=== PATIENT | female | born 1940 | race Asian ===

== ENCOUNTER 2019-02-03 15:57 | Emergency (ER) | payer MEDICARE, OTHER ==
[~2019-02-03] VITALS: Ht 162.6 cm; Wt 52.2 kg
--- NOTE | 2019-02-03 16:02 | NUR ---
ED Nurse Note: Patient brought in by ambulance from dialysis center c/o CP, 30 minutes before arrival to ED. Patient had NTG x2 at dialysis center and 1 NTG given by EMS en route. patient denies any chest pain at this time. patient's HD schedule is MWF, patient completed dialysis today.
[2019-02-03] MEDS ORDERED: AMLODIPINE BESY10 MG ORAL (16:03)
[2019-02-03] MEDS ORDERED: ISOSORBIDE MON120 M1 PO (16:03)
[2019-02-03] MEDS ORDERED: ASPIR 8181 MG ORAL (16:03)
[2019-02-03] MEDS ORDERED: CALCIUM + D3 E1 EACH PO (16:03)
[2019-02-03] MEDS ORDERED: HYDRALAZINE HC100 MG ORAL (16:03)
[2019-02-03] MEDS ORDERED: CLOPIDOGREL75 MG ORAL (16:03)
[2019-02-03] MEDS ORDERED: DOCUSATE SODIU100 MG ORAL (16:03)
[2019-02-03] MEDS ORDERED: CATAPRES0.1 MG ORAL (16:03)
[2019-02-03] MEDS ORDERED: FUROSEMIDE40 MG ORAL (16:03)
[2019-02-03] MEDS ORDERED: FERRIC SULFATE1 GM PO (16:03)
[2019-02-03] MEDS ORDERED: CEPHALEXIN500 M1 ORAL (16:03)
[2019-02-03] MEDS ORDERED: CRESTOR10 M2 ORAL (16:03)
--- NOTE | 2019-02-03 16:07 | Emergency Room Report ---
History of Present Illness General Chief Complaint: Chest Pain Source: Medical Record Present Illness HPI Patient is a 78-year-old female who presented after increased chest pressure. Patient reports having pain to the chest and upper abdomen. This began after dialysis. Patient a prior history of cardiac disease as well as end-stage renal disease. Patient completed dialysis and had been taking nitroglycerin. Allergies: Coded Allergies: LISINOPRIL (Verified Allergy, Unknown, 02/03/19) Patient History Now: No Reviewed Nursing Documentation: PMH: Agreed; PSxH: Agreed Nursing Documentation-PMH Past Medical History: No History, Except For Hx Cardiac Problems: Yes - CHF Hx Hypertension: Yes Hx Diabetes: Yes - ESRD, HYPERKALEMIA Review of Systems All Other Systems: negative except mentioned in HPI Physical Exam Vital Signs Date Time Temp Pulse Resp B/P (MAP) Pulse Ox O2 Delivery O2 Flow Rate FiO2 02/03/19 15:53 98.2 90 18 190/66 99 Room Air Sp02 EP Interpretation: reviewed, normal General Appearance: normal inspection, well appearing, no apparent distress, alert, GCS 15 Head: atraumatic ENT: normal ENT inspection, hearing grossly normal, normal voice Neck: normal inspection, full range of motion, supple, no bony tend Respiratory: normal inspection, lungs clear, no respiratory distress, no retraction, no wheezing Cardiovascular #1: regular rate, rhythm, no edema Gastrointestinal: normal inspection, normal bowel sounds, non tender, soft, no guarding, no hernia Genitourinary: no CVA tenderness Musculoskeletal: normal inspection, back normal, normal range of motion Neurologic: normal inspection, alert, oriented x3, responsive, web project manager III-XII nml as tested, speech normal Psychiatric: normal inspection, judgement/insight normal, mood/affect normal Skin: normal inspection, normal color, no rash Medical Decision Making Diagnostic Impression: Primary Impression: Chest pain ER Course Patient presented for chest pain. Differential diagnosis included but was not limited to acute coronary syndrome, pulmonary embolism, pneumonia, aortic dissection, shingles, pneumothorax, aortic dissection, esophageal rupture, pericarditis. Because of complexity of patient's case laboratory testing and imaging studies were ordered. Patient was noted to have improvement in her chest pain after medications. Patient stated she felt better and wanted to leave. Patient was noted to have significant risk for cardiac chest pain and was advised that she should remain in the hospital for further monitoring and evaluation. Patient was advised risk benefits alternatives of leaving AGAINST MEDICAL ADVICE and she indicated understanding and wishes to leave. Patient was advised to return at any time. Labs Test 02/03/19 16:34 White Blood Count 7.7 K/UL (4.8-10.8) Red Blood Count 4.45 M/UL (4.20-5.40) Hemoglobin 14.5 G/DL (12.0-16.0) Hematocrit 43.4 % (37.0-47.0) Mean Corpuscular Volume 97 FL (80-99) Mean Corpuscular Hemoglobin 32.7 PG (27.0-31.0) Mean Corpuscular Hemoglobin Concent 33.5 G/DL (32.0-36.0) Red Cell Distribution Width 15.9 % (11.6-14.8) Platelet Count 95 K/UL (150-450) Mean Platelet Volume 8.5 FL (6.5-10.1) Neutrophils (%) (Auto) % (45.0-75.0) Lymphocytes (%) (Auto) % (20.0-45.0) Monocytes (%) (Auto) % (1.0-10.0) Eosinophils (%) (Auto) % (0.0-3.0) Basophils (%) (Auto) % (0.0-2.0) Differential Total Cells Counted 100 Neutrophils % (Manual) 62 % (45-75) Lymphocytes % (Manual) 17 % (20-45) Monocytes % (Manual) 9 % (1-10) Eosinophils % (Manual) 5 % (0-3) Basophils % (Manual) 1 % (0-2) Band Neutrophils 6 % (0-8) Platelet Estimate Decreased Platelet Morphology Normal Red Blood Cell Morphology Normal Sodium Level 136 MMOL/L (136-145) Potassium Level 4.5 MMOL/L (3.5-5.1) Chloride Level 96 MMOL/L (98-107) Carbon Dioxide Level 29 MMOL/L (21-32) Anion Gap 12 mmol/L (5-15) Blood Urea Nitrogen 30 mg/dL (7-18) Creatinine 3.8 MG/DL (0.55-1.30) Estimat Glomerular Filtration Rate mL/min (>60) Glucose Level 406 MG/DL (74-106) Calcium Level 9.7 MG/DL (8.5-10.1) Total Bilirubin 0.8 MG/DL (0.2-1.0) Aspartate Amino Transf (AST/SGOT) 79 U/L (15-37) Alanine Aminotransferase (ALT/SGPT) 39 U/L (12-78) Alkaline Phosphatase 117 U/L (46-116) Troponin I 0.123 ng/mL (0.000-0.056) Pro-B-Type Natriuretic Peptide 29502 pg/mL (0-125) Total Protein 8.9 G/DL (6.4-8.2) Albumin 3.8 G/DL (3.4-5.0) Globulin 5.1 g/dL Albumin/Globulin Ratio 0.7 (1.0-2.7) Lipase 226 U/L (73-393) Last Vital Signs Date Time Temp Pulse Resp B/P (MAP) Pulse Ox O2 Delivery O2 Flow Rate FiO2 02/03/19 15:53 98.2 90 18 190/66 99 Room Air Status: improved Disposition: HOME, SELF-CARE Condition: Stable Jono Medina MD Feb 03, 2019 16:07
[2019-02-03] MEDS ORDERED: Nitroglycerin Subl 0.4mg tab SL PRN (16:30)
[2019-02-03] MEDS: Mylanta II UD 30ml ORAL ONE ×2 (16:37→16:38)
[2019-02-03 17:00] VITALS: BP 161/49
--- NOTE | 2019-02-03 17:04 | Diagnostic Imaging Report ---
Indication: Chest pain Technique: One view of the chest Comparison: none Findings: The heart is borderline enlarged. Lungs and pleural spaces are clear. The aorta is tortuous ectatic and calcified. Impression: No acute process
--- NOTE | 2019-02-03 17:05 | NUR ---
ED Nurse Note: Now patient denie any chest pain, patient states chest pain relieved after nitro given prior to arrival patient denies any abd pain at this time as well. patient states she produces urine once a day in the morning, unable to collect urine Sample at this time Dr. Adam white with this.
[2019-02-03 17:09] LABS: HEMATOCRIT 43.4 % (37.0-47.0); HEMOGLOBIN 14.5 G/DL (12.0-16.0); MEAN CORPUSCULAR VOLUME 97 FL (80-99); PLATELET COUNT 95 K/UL (150-450); RED BLOOD COUNT 4.45 M/UL (4.20-5.40); RED CELL DISTRIBUTION WIDTH 15.9 % (11.6-14.8); WHITE BLOOD COUNT 7.7 K/UL (4.8-10.8)
[2019-02-03 17:27] LABS: ANION GAP 12 mmol/L (5-15); BLOOD UREA NITROGEN 30 mg/dL (7-18); CALCIUM 9.7 MG/DL (8.5-10.1); CARBON DIOXIDE 29 MMOL/L (21-32); CHLORIDE 96 MMOL/L (98-107); CREATININE 3.8 MG/DL (0.55-1.30); POTASSIUM 4.5 MMOL/L (3.5-5.1); SODIUM 136 MMOL/L (136-145)
[2019-02-03 17:38] LABS: ALBUMIN 3.8 G/DL (3.4-5.0); ALBUMIN/GLOBULIN RATIO 0.7 (1.0-2.7); ALKALINE PHOSPHATASE 117 U/L (46-116); BILIRUBIN,TOTAL 0.8 MG/DL (0.2-1.0)
[2019-02-03 17:49] LABS: ALANINE AMINOTRANSFERASE 39 U/L (12-78)
[2019-02-03 17:55] LABS: ASPARTATE AMINO TRANSFERASE 79 U/L (15-37)
--- NOTE | 2019-02-03 19:15 | NUR ---
HAND-OFF: Report given to Rachid Wynne RN patient is stable in bed.
--- NOTE | 2019-02-03 19:16 | NUR ---
HAND-OFF: Report received from Tresa Geronimo RN.
[2019-02-03 19:57] VITALS: BP 204/49
--- NOTE | 2019-02-03 19:57 | NUR ---
ED Nurse Note: Patient called son multiple times to come to pick her up. Patient intends to leave AMA, LUIS M informed. Patient signed AMA form and was discharged and accompanied by her son.
== END 2019-02-03 19:57 | disposition left against medical advice (07) ==
LOC: EDBD 15:57 → EMR 18:50 → CANBEDREQ 19:56 → EMR 19:57
DX: R07.89 Other chest pain (principal); I13.2 Hypertensive heart and chronic kidney disease with heart failure and with stage 5 chronic kidney disease, or end stage renal disease; E11.22 Type 2 diabetes mellitus with diabetic chronic kidney disease; N18.6 End stage renal disease; I50.9 Heart failure, unspecified; Z99.2 Dependence on renal dialysis
CPT/HCPCS: 36415; 71045; 80053; 83690; 83880; 84484; 85007; 85025; 93005; 99283